=== PATIENT | male | born 1970 | race American Indian/Alaskan Native ===

== ENCOUNTER 2016-08-29 13:11 | Emergency (ER) | payer OTHER ==
[2016-08-29] MEDS ORDERED: CATAPRES PO ONE ×2 (16:50→18:32)
[2016-08-29] MEDS ORDERED: TORADOL IV ONE (16:51)
--- NOTE | 2016-08-29 19:32 | Emergency Department Report ---
ED General Adult HPI - General Chief complaint: High BP Stated complaint: HIGH BP Time Seen by Provider: 08/29/16 15:57 Source: EMS Mode of arrival: Stretcher Limitations: Other - History of Present Illness Initial comments: Patient sent here because blood pressure elevated. Reports non-compliant with BP meds for months. Does not remember the dose of lisinopril that he should take. -: Gradual, month(s) Severity scale (0 -10): 0 Consistency: intermittent Improves with: none Worsens with: none Associated Symptoms: other (reports chronic bilateral wrist pain). denies: confusion, chest pain, cough, diaphoresis, fever/chills, headaches, loss of appetite, malaise, nausea/vomiting, rash, seizure, shortness of breath, syncope , weakness - Related Data Previous Rx's Medication Instructions Recorded Last Taken Type Azithromycin [Zithromax Z-TERRI] 250 mg PO DAILY #6 tablet 08/04/13 Unknown Rx Benzonatate [Tessalon Perles] 100 mg PO Q8HR PRN #30 capsule 08/04/13 Unknown Rx Ibuprofen [Motrin] 800 mg PO Q8H PRN #20 tablet 08/04/13 Unknown Rx Gabapentin [Neurontin] 300 mg PO Q8H #90 capsule 04/21/14 Unknown Rx Ibuprofen [Motrin] 800 mg PO BID #20 tablet 04/21/14 Unknown Rx Cyclobenzaprine [Flexeril 10mg] 10 mg PO TID PRN #20 tablet 06/25/14 Unknown Rx Docusate Sodium [Colace CAP] 100 mg PO BID PRN #30 capsule 06/25/14 Unknown Rx HYDROcodone/APAP 5-325 [[place] 1 each PO Q6HR PRN #14 tablet 06/25/14 Unknown Rx 5/325] Lisinopril [Zestril TAB] 5 mg PO QDAY #15 tablet 08/29/16 Unknown Rx Allergies Allergy/AdvReac Type Severity Reaction Status Date / Time No Known Allergies Allergy Verified 06/25/14 08:28 ED Review of Systems ROS: Stated complaint: HIGH BP Other details as noted in HPI Other: GENERAL: Elevated BP. No weight change, fatigue, weakness, fever, chills, or night sweats SKIN: No changes in skin or hair, no itching, no rashes, no jaundice HEAD: No trauma, headache, or visual changes EYES: No blurriness, tearing, itching, acute visual loss, conjunctival discoloration, or scleral icterus EARS: No hearing loss, tinnitus, vertigo, or earache NOSE: No rhinorrhea, stuffiness, sneezing, itching, or epistaxis MOUTH: No bleeding gums, hoarseness, sore throat, or swelling CARDIAC: No new murmur, chest pain, palpitations, dyspnea on exertion, orthopnea , PND, or edema RESPIRATORY: No shortness of breath, wheeze, cough, sputum production, hemoptysis, pneumonia, asthma, bronchitis, or emphysema GI: No change in appetite, nausea, vomiting, dysphagia, change in bowel frequency, diarrhea, constipation, bleeding, hematemesis, melena, hematochezia, or abdominal pain URINARY: No frequency, urgency, polyuria, dysuria, hematuria, or incontinence MUSCULOSKELETAL: Bilateral wrist pain for over a year. No muscle weakness, joint stiffness, decrease in range of motion, redness, swelling NEUROLOGIC: No loss of sensation, numbness, tingling, tremors, weakness, paralysis, seizures HEMATOLOGIC: No anemia, easy bruising, bleeding, petechiae, or purpura ENDOCRINE: No hot or cold intolerance, sweating, polyuria, polydipsia or, polyphagia no thyroid problems PSYCHIATRIC: Denies SI/HI ED Past Medical Hx - Past Medical History Hx Hypertension: Yes Hx Diabetes: Yes Hx Psychiatric Treatment: Yes (BIPOLAR, depression) Additional medical history: Peripheral neuropathy,RECOVERING ALCOHOLIC and ADDICT - Surgical History Hx Appendectomy: Yes (??) - Social History Smoking Status: Current Every Day Smoker Substance Use Type: Alcohol - Medications Home Medications: Home Medications Medication Instructions Recorded Confirmed Last Taken Type Azithromycin [Zithromax Z-TERRI] 250 mg PO DAILY #6 tablet 08/04/13 Unknown Rx Benzonatate [Tessalon Perles] 100 mg PO Q8HR PRN #30 capsule 08/04/13 Unknown Rx Ibuprofen [Motrin] 800 mg PO Q8H PRN #20 tablet 08/04/13 Unknown Rx Gabapentin [Neurontin] 300 mg PO Q8H #90 capsule 04/21/14 Unknown Rx Ibuprofen [Motrin] 800 mg PO BID #20 tablet 04/21/14 Unknown Rx Cyclobenzaprine [Flexeril 10mg] 10 mg PO TID PRN #20 tablet 06/25/14 Unknown Rx Docusate Sodium [Colace CAP] 100 mg PO BID PRN #30 capsule 06/25/14 Unknown Rx HYDROcodone/APAP 5-325 [[place] 1 each PO Q6HR PRN #14 tablet 06/25/14 Unknown Rx 5/325] Lisinopril [Zestril TAB] 5 mg PO QDAY #15 tablet 08/29/16 Unknown Rx ED Physical Exam - General Limitations: Other - Other Other exam information: GENERAL: Patient in no acute distress HEAD: Normocephalic, atraumatic EYES: PERRLA, EOM intact, no scleral icterus, no conjunctival hemorrhage, visual mac and acuity wnl, NOSE: No tenderness, discharge, sinus tenderness MOUTH: No erythema, bleeding, exudate HEART: Regular rate and rhythm, no murmur, S1-S2 are auscultated, pulses are symmetric LUNGS: No wheezing, rales, rhonchi, bilateral breath sounds ABDOMEN: Normal bowel sounds, no tenderness, no rebound, no guarding, no masses , no CVA tenderness MUSCULOSKELETAL: Normal joint range of motion, no redness, no swelling, no tenderness NEUROLOGIC: GCS 15, Alert and Oriented x3, Cranial nerves intact, normal sensation, normal strength, normal gait, no cerebellar deficit PSYCHIATRIC: No homicidal or suicidal ideation, no anxiety, no depression, no hallucinations SKIN: Skin is warm and dry, no wounds, no rashes ED Course Vital Signs 08/29/16 08/29/16 08/29/16 13:35 13:47 14:00 Temperature 98.4 F Pulse Rate 78 Respiratory 18 Rate Blood Pressure 179/117 175/107 Blood Pressure 179/117 [Left] O2 Sat by Pulse 98 Oximetry 08/29/16 08/29/16 08/29/16 15:00 16:00 16:35 Temperature Pulse Rate Respiratory Rate Blood Pressure 157/98 172/100 164/113 Blood Pressure [Left] O2 Sat by Pulse Oximetry 08/29/16 08/29/16 08/29/16 18:16 19:01 19:41 Temperature Pulse Rate Respiratory 20 Rate Blood Pressure 184/112 Blood Pressure 163/101 [Left] O2 Sat by Pulse 99 Oximetry ED Medical Decision Making - EKG Data Interpretation: no acute changes - Medical Decision Making Patient comfortable. BP decreased to 160/102. Updated with results. Plan discharge with outpatient follow-up. Patient agrees with plan and will return if symptoms worsen. Critical care attestation.: If time is entered above; I have spent that time in minutes in the direct care of this critically ill patient, excluding procedure time. ED Disposition Clinical Impression: Hypertensive urgency Disposition: DC-01 TO HOME OR SELFCARE Is pt being admited?: No Condition: Stable Instructions: Hypertensive Crisis (ED) Prescriptions: Lisinopril [Zestril TAB] 5 mg PO QDAY #15 tablet Referrals: PRIMARY CAREMD [Primary Care Provider] - JONATHAN BOND MD [Staff Physician] - 2-3 Days Formerly Named [facility] [Outside] - [facility] [Outside] - [facility] Time of Disposition: 19:44
[2016-08-29 19:41] VITALS: BP 163/101
== END 2016-08-29 20:22 | disposition home or self-care (01) ==
LOC: ED 13:11
DX: I10 Essential (primary) hypertension (principal); E11.9 Type 2 diabetes mellitus without complications; F31.9 Bipolar disorder, unspecified; F17.200 Nicotine dependence, unspecified, uncomplicated
CPT/HCPCS: 93005; 93010; 96374; 99284; J1885

== ENCOUNTER 2016-09-09 11:30 | Emergency (ER) | payer SELFPAY ==
[2016-09-09 12:09] LABS: Basophils % (Auto) 1.3 % (0.0-1.8); Eosinophils % (Auto) 0.7 % (0.0-4.3); Hematocrit 38.1 % (35.5-45.6); Hemoglobin 13.2 gm/dl (11.8-15.2); Mean Corpuscular HGB Conc 35 % (32-34); Mean Corpuscular Hemoglobin 28 pg (28-32); Mean Corpuscular Volume 81 fl (84-94); Platelet Count 231 K/mm3 (140-440); Red Blood Count 4.68 M/mm3 (3.65-5.03); Red Cell Distribution Width 15.1 % (13.2-15.2); White Blood Count 4.4 K/mm3 (4.5-11.0)
[2016-09-09 12:26] LABS: Anion Gap 18 mmol/L; BUN/Creatinine Ratio 17.14; Blood Urea Nitrogen 12 mg/dL (9-20); Calcium 8.5 mg/dL (8.4-10.2); Carbon Dioxide 26 mmol/L (22-30); Chloride 100.2 mmol/L (98-107); Glucose 114 mg/dL (75-100); Potassium 4.1 mmol/L (3.6-5.0); Sodium 140 mmol/L (137-145)
[2016-09-09 13:03] LABS: Urine Drugs of Abuse Note Disclamer
[2016-09-09 13:14] LABS: Bilirubin,Urine NEG (Negative); Blood,Urine NEG (Negative); Ketones,Urine NEG (Negative); Leukocyte Esterase,Urine NEG (Negative); Nitrite,Urine NEG (Negative); Protein,Urine <15 mg/dL mg/dL (Negative); Urobilinogen,Urine < 2.0 mg/dL (<2.0); WBC,Urine < 1.0 /HPF (0.0-6.0)
[2016-09-09] MEDS ORDERED: CATAPRES PO ONE (13:35)
[2016-09-09] MEDS ORDERED: ATIVAN IM PRN (13:44)
[2016-09-09] MEDS ORDERED: ATIVAN PO PRN ×2 (13:44)
[2016-09-09] MEDS ORDERED: TYLENOL PO PRN (13:46)
[2016-09-09] MEDS ORDERED: MILK OF MAGNESIA PO PRN (13:46)
[2016-09-09] MEDS ORDERED: ALUM-MAG HYDROX-SIMETH 200-200-20MG/5ML PO PRN (13:46)
--- NOTE | 2016-09-09 13:53 | Emergency Department Report ---
ED General Adult HPI - General Chief complaint: Psych Stated complaint: DIANNE MÁRQUEZ Time Seen by Provider: 09/09/16 13:19 Source: patient Mode of arrival: Ambulatory Limitations: No Limitations - History of Present Illness Initial comments: The patient states that he was sent here by the [facility] for detox and does have a letter to that effect. Apparently the patient is in a treatment program at the [facility]. He states that he previously has been on Seroquel and Cymbalta. He is not taking any psychiatric medicine now. He states that he drinks daily and that his last drink was this morning prior to arrival. Despite this he claims that he wants detox "because they told me I need it". Otherwise it does not seem like the patient has any real inclination to stop drinking. He states that if he stops drinking he shakes badly. He states he needs to be on medication if he stops drinking. Apparently he has been in detox programs in the past and does have a psychiatric history. -: year(s) Associated Symptoms: denies other symptoms Treatments Prior to Arrival: none - Related Data Previous Rx's Medication Instructions Recorded Last Taken Type Azithromycin [Zithromax Z-TERRI] 250 mg PO DAILY #6 tablet 08/04/13 Unknown Rx Benzonatate [Tessalon Perles] 100 mg PO Q8HR PRN #30 capsule 08/04/13 Unknown Rx Ibuprofen [Motrin] 800 mg PO Q8H PRN #20 tablet 08/04/13 Unknown Rx Gabapentin [Neurontin] 300 mg PO Q8H #90 capsule 04/21/14 Unknown Rx Ibuprofen [Motrin] 800 mg PO BID #20 tablet 04/21/14 Unknown Rx Cyclobenzaprine [Flexeril 10mg] 10 mg PO TID PRN #20 tablet 06/25/14 Unknown Rx Docusate Sodium [Colace CAP] 100 mg PO BID PRN #30 capsule 06/25/14 Unknown Rx HYDROcodone/APAP 5-325 [[place] 1 each PO Q6HR PRN #14 tablet 06/25/14 Unknown Rx 5/325] Ibuprofen [Motrin] 600 mg PO Q8H PRN #15 tablet 08/29/16 Unknown Rx Lisinopril [Zestril TAB] 5 mg PO QDAY #15 tablet 08/29/16 Unknown Rx Allergies Allergy/AdvReac Type Severity Reaction Status Date / Time No Known Allergies Allergy Verified 09/09/16 11:42 ED Review of Systems ROS: Stated complaint: MH EVAL Other details as noted in HPI Constitutional: denies: chills, fever Eyes: denies: eye pain, eye discharge, vision change ENT: denies: ear pain, throat pain Respiratory: denies: cough, shortness of breath, wheezing Cardiovascular: denies: chest pain, palpitations Endocrine: no symptoms reported Gastrointestinal: denies: abdominal pain, nausea, diarrhea Genitourinary: denies: urgency, dysuria Musculoskeletal: denies: back pain, joint swelling, arthralgia Skin: denies: rash, lesions Neurological: denies: headache, weakness, paresthesias Psychiatric: denies: anxiety, depression Hematological/Lymphatic: denies: easy bleeding, easy bruising ED Past Medical Hx - Past Medical History Previous Medical History?: Yes Hx Hypertension: Yes Hx Diabetes: Yes Hx Psychiatric Treatment: Yes (BIPOLAR, depression) Additional medical history: Peripheral neuropathy,RECOVERING ALCOHOLIC and ADDICT - Surgical History Hx Appendectomy: Yes (??) - Social History Smoking Status: Current Every Day Smoker Substance Use Type: Alcohol Other Social History: Patient states that he has been in "[employer] housing since 2013. He is not homeless. - Medications Home Medications: Home Medications Medication Instructions Recorded Confirmed Last Taken Type Azithromycin [Zithromax Z-TERRI] 250 mg PO DAILY #6 tablet 08/04/13 Unknown Rx Benzonatate [Tessalon Perles] 100 mg PO Q8HR PRN #30 capsule 08/04/13 Unknown Rx Ibuprofen [Motrin] 800 mg PO Q8H PRN #20 tablet 08/04/13 Unknown Rx Gabapentin [Neurontin] 300 mg PO Q8H #90 capsule 04/21/14 Unknown Rx Ibuprofen [Motrin] 800 mg PO BID #20 tablet 04/21/14 Unknown Rx Cyclobenzaprine [Flexeril 10mg] 10 mg PO TID PRN #20 tablet 06/25/14 Unknown Rx Docusate Sodium [Colace CAP] 100 mg PO BID PRN #30 capsule 06/25/14 Unknown Rx HYDROcodone/APAP 5-325 [[place] 1 each PO Q6HR PRN #14 tablet 06/25/14 Unknown Rx 5/325] Ibuprofen [Motrin] 600 mg PO Q8H PRN #15 tablet 08/29/16 Unknown Rx Lisinopril [Zestril TAB] 5 mg PO QDAY #15 tablet 08/29/16 Unknown Rx ED Physical Exam - General Limitations: No Limitations General appearance: alert, in no apparent distress - Head Head exam: Present: atraumatic, normocephalic - Eye Eye exam: Present: normal appearance. Absent: scleral icterus - ENT ENT exam: Present: mucous membranes moist - Neck Neck exam: Present: normal inspection - Respiratory Respiratory exam: Present: normal lung sounds bilaterally. Absent: respiratory distress - Cardiovascular Cardiovascular Exam: Present: regular rate, normal rhythm. Absent: systolic murmur, diastolic murmur, rubs, gallop - GI/Abdominal GI/Abdominal exam: Present: soft, normal bowel sounds. Absent: distended, tenderness, guarding, rebound, rigid - Rectal Rectal exam: Present: deferred - Extremities Exam Extremities exam: Present: normal inspection - Back Exam Back exam: Present: normal inspection - Neurological Exam Neurological exam: Present: alert, oriented X3, CN II-XII intact, normal gait. Absent: motor sensory deficit - Psychiatric Psychiatric exam: Present: anxious. Absent: depressed, agitated, manic (speech is a bit pressurized but not truly manic.), suicidal ideation - Skin Skin exam: Present: warm, dry, intact, normal color. Absent: rash ED Course Vital Signs 09/09/16 11:42 Temperature 98.6 F Pulse Rate 91 H Respiratory 20 Rate Blood Pressure 151/103 O2 Sat by Pulse 100 Oximetry - Reevaluation(s) Reevaluation #1: The patient has been referred to mental health for evaluation for possible inpatient detox program. I have initiated a see what protocol. Patient is not currently withdrawing. He had moderate hypertension and medication was initiated. 09/09/16 13:53 ED Medical Decision Making - Lab Data Result diagrams: 09/09/16 11:56 09/09/16 11:56 Laboratory Results - last 24 hr 09/09/16 09/09/16 09/09/16 11:56 11:56 11:56 WBC 4.4 L RBC 4.68 Hgb 13.2 Hct 38.1 MCV 81 L MCH 28 MCHC 35 H RDW 15.1 Plt Count 231 Lymph % (Auto) 42.1 H [place] % (Auto) 8.7 H Eos % (Auto) 0.7 Baso % (Auto) 1.3 Lymph # 1.9 [place] # 0.4 Eos # 0.0 Baso # 0.1 Seg Neutrophils % 47.2 Seg Neutrophils # 2.1 Sodium 140 Potassium 4.1 Chloride 100.2 Carbon Dioxide 26 Anion Gap 18 BUN 12 Creatinine 0.7 L Estimated GFR > 60 BUN/Creatinine Ratio 17.14 Glucose 114 H Calcium 8.5 Urine Color Urine Turbidity Urine pH Ur Specific [place] Urine Protein Urine Glucose (UA) Urine Ketones Urine Blood Urine Nitrite Urine Bilirubin Urine Urobilinogen Ur Leukocyte Esterase Urine WBC (Auto) Urine RBC (Auto) U Epithel Cells (Auto) Urine Opiates Screen Urine Methadone Screen Ur Barbiturates Screen Ur Phencyclidine Scrn Ur Amphetamines Screen U Benzodiazepines Scrn Plasma/Serum Alcohol 0.10 H 09/09/16 09/09/16 Unknown Unknown WBC RBC Hgb Hct MCV MCH MCHC RDW Plt Count Lymph % (Auto) [place] % (Auto) Eos % (Auto) Baso % (Auto) Lymph # [place] # Eos # Baso # Seg Neutrophils % Seg Neutrophils # Sodium Potassium Chloride Carbon Dioxide Anion Gap BUN Creatinine Estimated GFR BUN/Creatinine Ratio Glucose Calcium Urine Color Colorless Urine Turbidity Clear Urine pH 6.0 Ur Specific [place] 1.002 L Urine Protein <15 mg/dl Urine Glucose (UA) Neg Urine Ketones Neg Urine Blood Neg Urine Nitrite Neg Urine Bilirubin Neg Urine Urobilinogen < 2.0 Ur Leukocyte Esterase Neg Urine WBC (Auto) < 1.0 Urine RBC (Auto) 1.0 U Epithel Cells (Auto) < 1.0 Urine Opiates Screen Presumptive negative Urine Methadone Screen Presumptive negative Ur Barbiturates Screen Presumptive negative Ur Phencyclidine Scrn Presumptive negative Ur Amphetamines Screen Presumptive negative U Benzodiazepines Scrn Presumptive negative Plasma/Serum Alcohol Critical care attestation.: If time is entered above; I have spent that time in minutes in the direct care of this critically ill patient, excluding procedure time. ED Disposition Clinical Impression: Alcoholism, Essential hypertension Disposition: DC/TX-65 PSY HOSP/PSY UNIT Is pt being admited?: No Does the pt Need Aspirin: No Condition: Stable Instructions: Hypertension (ED) Referrals: PRIMARY CARE, [Primary Care Provider] - 3-5 Days Time of Disposition: 13:54
[2016-09-09] MEDS ORDERED: NORVASC PO SCH (14:00)
--- NOTE | 2016-09-09 19:49 | Event Note ---
Date: 09/09/16 Discussed with patient about not being able to do alcohol rehabilitation here. Patient requests to leave. Patient is not suicidal or homicidal. Patient is alert and oriented 4. Patient has no tremors no tachycardia, or no other signs of acute withdrawal. Discussed with psychiatric network director Jody. Patient can go to [place]. He does not need ambulance transportation and he can go by his own private vehicle. Discussed plan with patient and he agrees to plan. All diagnostic questions and concerns have been addressed patient has no further questions. Discussed with patient is having any tremors or any seizures or any worsening of his condition to me like him back to the emergency department patient has verbalized understanding. Additional verbal discharged structures were given.
[2016-09-09 23:41] VITALS: BP 141/92
== END 2016-09-09 20:00 ==
LOC: ED 11:30
DX: F10.129 Alcohol abuse with intoxication, unspecified (principal); I10 Essential (primary) hypertension; E11.9 Type 2 diabetes mellitus without complications; F31.9 Bipolar disorder, unspecified; F17.200 Nicotine dependence, unspecified, uncomplicated
CPT/HCPCS: 36415; 80048; 80307; 81001; 85025; 99284; G0480; 80320

== ENCOUNTER 2016-11-14 08:38 | Emergency (ER) | payer SELFPAY ==
[2016-11-14 09:00] VITALS: BP 103/68
[2016-11-14 09:42] LABS: Anion Gap 20 mmol/L; BUN/Creatinine Ratio 18.57; Blood Urea Nitrogen 13 mg/dL (9-20); Calcium 9.3 mg/dL (8.4-10.2); Carbon Dioxide 24 mmol/L (22-30); Chloride 99.5 mmol/L (98-107); Glucose 140 mg/dL (75-100); Potassium 4.6 mmol/L (3.6-5.0); Sodium 139 mmol/L (137-145)
[2016-11-14 09:43] LABS: Basophils % (Auto) 0.4 % (0.0-1.8); Eosinophils % (Auto) 0.4 % (0.0-4.3); Hematocrit 46.1 % (35.5-45.6); Hemoglobin 15.4 gm/dl (11.8-15.2); Mean Corpuscular HGB Conc 33 % (32-34); Mean Corpuscular Hemoglobin 28 pg (28-32); Mean Corpuscular Volume 83 fl (84-94); Platelet Count 251 K/mm3 (140-440); Red Blood Count 5.58 M/mm3 (3.65-5.03); Red Cell Distribution Width 14.9 % (13.2-15.2); White Blood Count 11.5 K/mm3 (4.5-11.0)
[2016-11-14] MEDS ORDERED: ZOFRAN IV ONE (16:30)
[2016-11-14] MEDS ORDERED: NACL 0.9% 1000 ML 1,000 ML IV ONE (16:30)
[2016-11-14] MEDS ORDERED: TORADOL IV ONE (16:30)
--- NOTE | 2016-11-14 16:34 | Emergency Department Report ---
ED Abdominal Pain HPI - General Chief Complaint: Nausea/Vomiting/Diarrhea Stated Complaint: ABD PAIN Time Seen by Provider: 11/14/16 16:23 Source: patient Mode of arrival: Ambulatory Limitations: No Limitations - History of Present Illness Initial Comments: PATIENT STATED THAT HE WAS AT A [employer] AND HE THINK THAT HE ATE BAD FOOD. Complaint: abdominal pain -: Last night Location: diffuse Radiation: none Migration to: no migration Severity: moderate Severity scale (0 -10): 4 Quality: cramping Improves With: vomiting Worsens With: eating Associated Symptoms: nausea, vomiting, diarrhea. denies: fever, hematemesis, hematochezia, melena, hematuria, anorexia - Related Data Previous Rx's Medication Instructions Recorded Last Taken Type Azithromycin [Zithromax Z-TERRI] 250 mg PO DAILY #6 tablet 08/04/13 Unknown Rx Benzonatate [Tessalon Perles] 100 mg PO Q8HR PRN #30 capsule 08/04/13 Unknown Rx Ibuprofen [Motrin] 800 mg PO Q8H PRN #20 tablet 08/04/13 Unknown Rx Gabapentin [Neurontin] 300 mg PO Q8H #90 capsule 04/21/14 Unknown Rx Ibuprofen [Motrin] 800 mg PO BID #20 tablet 04/21/14 Unknown Rx Cyclobenzaprine [Flexeril 10mg] 10 mg PO TID PRN #20 tablet 06/25/14 Unknown Rx Docusate Sodium [Colace CAP] 100 mg PO BID PRN #30 capsule 06/25/14 Unknown Rx HYDROcodone/APAP 5-325 [[place] 1 each PO Q6HR PRN #14 tablet 06/25/14 Unknown Rx 5/325] Ibuprofen [Motrin] 600 mg PO Q8H PRN #15 tablet 08/29/16 Unknown Rx Lisinopril [Zestril TAB] 5 mg PO QDAY #15 tablet 08/29/16 Unknown Rx Ondansetron [Zofran Odt] 4 mg PO Q8HR PRN #14 tab.rapdis 11/14/16 Unknown Rx Allergies Allergy/AdvReac Type Severity Reaction Status Date / Time No Known Allergies Allergy Verified 09/09/16 11:42 ED Review of Systems ROS: Stated complaint: ABD PAIN Other details as noted in HPI Comment: All other systems reviewed and negative Constitutional: denies: chills, fever Respiratory: denies: cough, orthopnea, shortness of breath Cardiovascular: denies: chest pain, palpitations Gastrointestinal: abdominal pain, nausea, vomiting, diarrhea. denies: constipation, hematemesis, melena, hematochezia Neurological: denies: headache, weakness ED Past Medical Hx - Past Medical History Previous Medical History?: Yes Hx Hypertension: Yes Hx Diabetes: Yes Hx Psychiatric Treatment: Yes (BIPOLAR, depression) Additional medical history: Peripheral neuropathy,RECOVERING ALCOHOLIC and ADDICT - Surgical History Past Surgical History?: Yes Hx Appendectomy: Yes (??) - Social History Smoking Status: Current Every Day Smoker Substance Use Type: Alcohol - Medications Home Medications: Home Medications Medication Instructions Recorded Confirmed Last Taken Type Azithromycin [Zithromax Z-TERRI] 250 mg PO DAILY #6 tablet 08/04/13 Unknown Rx Benzonatate [Tessalon Perles] 100 mg PO Q8HR PRN #30 capsule 08/04/13 Unknown Rx Ibuprofen [Motrin] 800 mg PO Q8H PRN #20 tablet 08/04/13 Unknown Rx Gabapentin [Neurontin] 300 mg PO Q8H #90 capsule 04/21/14 Unknown Rx Ibuprofen [Motrin] 800 mg PO BID #20 tablet 04/21/14 Unknown Rx Cyclobenzaprine [Flexeril 10mg] 10 mg PO TID PRN #20 tablet 06/25/14 Unknown Rx Docusate Sodium [Colace CAP] 100 mg PO BID PRN #30 capsule 06/25/14 Unknown Rx HYDROcodone/APAP 5-325 [[place] 1 each PO Q6HR PRN #14 tablet 06/25/14 Unknown Rx 5/325] Ibuprofen [Motrin] 600 mg PO Q8H PRN #15 tablet 08/29/16 Unknown Rx Lisinopril [Zestril TAB] 5 mg PO QDAY #15 tablet 08/29/16 Unknown Rx Ondansetron [Zofran Odt] 4 mg PO Q8HR PRN #14 tab.rapdis 11/14/16 Unknown Rx ED Physical Exam - General Limitations: No Limitations General appearance: alert, in no apparent distress - Head Head exam: Present: normocephalic - Eye Eye exam: Present: normal appearance Pupils: Present: normal accommodation - ENT ENT exam: Present: normal exam, normal orophraynx, mucous membranes dry - Neck Neck exam: Present: normal inspection, full ROM. Absent: tenderness, meningismus, lymphadenopathy - Respiratory Respiratory exam: Present: normal lung sounds bilaterally. Absent: respiratory distress, wheezes, rales, rhonchi, chest wall tenderness - Cardiovascular Cardiovascular Exam: Present: regular rate, normal rhythm, normal heart sounds. Absent: diastolic murmur - GI/Abdominal GI/Abdominal exam: Present: soft, normal bowel sounds. Absent: distended, tenderness, guarding, rebound, rigid, organomegaly, mass, bruit, pulsatile mass - Extremities Exam Extremities exam: Present: normal inspection - Back Exam Back exam: Present: normal inspection. Absent: CVA tenderness (R), CVA tenderness (L) - Neurological Exam Neurological exam: Present: alert, oriented X3, CN II-XII intact, normal gait - Psychiatric Psychiatric exam: Present: normal affect. Absent: manic, homicidal ideation, suicidal ideation - Skin Skin exam: Present: warm, dry, intact ED Course Vital Signs 11/14/16 08:58 Temperature 97.7 F Pulse Rate 93 H Respiratory 18 Rate Blood Pressure 103/68 O2 Sat by Pulse 100 Oximetry - Reevaluation(s) Reevaluation #1: 11/14/16 18:13 PATIENT STATED THAT HE FEEL MUCH BETTER. ED Medical Decision Making - Lab Data Result diagrams: 11/14/16 09:17 11/14/16 09:17 - Medical Decision Making LABS REVIEWED , NO ACUTE ABNORMALITIES. PATIENT STATED THAT HE FEEL MUCH BETTER , NO VOMITING. Critical care attestation.: If time is entered above; I have spent that time in minutes in the direct care of this critically ill patient, excluding procedure time. ED Disposition Clinical Impression: Abdominal pain, Gastroenteritis Disposition: - TO HOME OR SELFCARE Is pt being admited?: No Condition: Stable Instructions: Gastroenteritis (ED) Referrals: PRIMARY CARE, [Primary Care Provider] - 3-5 Days
[2016-11-14] MEDS ORDERED: ZOFRAN ONE (18:41)
== END 2016-11-14 18:52 | disposition home or self-care (01) ==
LOC: ED 08:38
DX: K21.9 Gastro-esophageal reflux disease without esophagitis (principal); I10 Essential (primary) hypertension; E11.9 Type 2 diabetes mellitus without complications; F17.200 Nicotine dependence, unspecified, uncomplicated
CPT/HCPCS: 36415; 80048; 82962; 83690; 85025; 96374; 99283; J2405

== ENCOUNTER 2017-01-18 09:39 | Emergency (ER) | payer OTHER ==
[2017-01-18 10:04] VITALS: BP 134/82
--- NOTE | 2017-01-18 13:31 | Emergency Department Report ---
ED Rash HPI - HPI Chief Complaint: Skin Rash Stated Complaint: RASH ON LEFT ARM Time Seen by Provider: 01/18/17 11:59 Duration: 2 Days (rash to left arm and on the left arm. For 2 days.) Location: Upper Extremities (left upper extremity) Suspected Cause: Unknown Rash Symptoms: Yes Itching (rash left arm and armpit 2 days), Yes Blistering ( left arm and armpit), No Facial Swelling, No Tongue/Oral Swelling, No Breathing Difficulties, No Choking Sensation, No Wheezing/Dyspnea, No Peeling, No Fever, No Lightheaded, No Malaise, No Myalgias Severity: moderate (patient reports that pain is 4 out of 10 and feels tingly and also rash sites are itchy) Other History: Patient reports that he is in the [facility] program for drug and alcohol treatment and states that he took flu shot 6 weeks ago and pneumonia and tetanus shot yesterday. Patient said he has red spots on his left arm and armpit that has some blisters that started 2 days ago reports pain that tingling in and itching at the site. He was sent to emergency room by the nursing staff to be checked out because he could have hives from medication that he got yesterday. Patient said that the rash areas started 2 days ago and he got the tetanus vaccine and pneumonia vaccine yesterday. He denies any fever or chills. Denies any coughing, difficulty swallowing, swelling of tongue , wheezing or stridor. Denies any fever or chills. Denies any neck swelling. No [id number] medication use. He states that his tetanus vaccine is up-to -date ED Review of Systems ROS: Stated complaint: RASH ON LEFT ARM Other details as noted in HPI Comment: All other systems reviewed and negative Constitutional: no symptoms reported Eyes: denies: eye discharge ENT: denies: ear pain, throat pain, congestion Respiratory: no symptoms reported Cardiovascular: denies: chest pain, palpitations, dyspnea on exertion, edema, syncope, paroxysmal nocturnal dyspnea Gastrointestinal: denies: abdominal pain, nausea, vomiting Musculoskeletal: denies: joint swelling, arthralgia Skin: rash (itching and painful blisters), pruritus Neurological: denies: headache, weakness, abnormal gait, vertigo ED Past Medical Hx - Past Medical History Previous Medical History?: Yes Hx Hypertension: Yes Hx Diabetes: Yes Hx Psychiatric Treatment: Yes (BIPOLAR, depression) Additional medical history: Peripheral neuropathy,RECOVERING ALCOHOLIC and ADDICT - Surgical History Past Surgical History?: Yes Hx Appendectomy: Yes (??) - Family History Family history: no significant - Social History Smoking Status: Current Every Day Smoker Substance Use Type: Prescribed - Medications Home Medications: Home Medications Medication Instructions Recorded Confirmed Last Taken Type Azithromycin [Zithromax Z-TERRI] 250 mg PO DAILY #6 tablet 08/04/13 Unknown Rx Benzonatate [Tessalon Perles] 100 mg PO Q8HR PRN #30 capsule 08/04/13 Unknown Rx Ibuprofen [Motrin] 800 mg PO Q8H PRN #20 tablet 08/04/13 Unknown Rx Gabapentin [Neurontin] 300 mg PO Q8H #90 capsule 04/21/14 Unknown Rx Ibuprofen [Motrin] 800 mg PO BID #20 tablet 04/21/14 Unknown Rx Cyclobenzaprine [Flexeril 10mg] 10 mg PO TID PRN #20 tablet 06/25/14 Unknown Rx Docusate Sodium [Colace CAP] 100 mg PO BID PRN #30 capsule 06/25/14 Unknown Rx HYDROcodone/APAP 5-325 [[place] 1 each PO Q6HR PRN #14 tablet 06/25/14 Unknown Rx 5/325] Ibuprofen [Motrin] 600 mg PO Q8H PRN #15 tablet 08/29/16 Unknown Rx Lisinopril [Zestril TAB] 5 mg PO QDAY #15 tablet 08/29/16 Unknown Rx Ondansetron [Zofran Odt] 4 mg PO Q8HR PRN #14 tab.rapdis 11/14/16 Unknown Rx Valacyclovir HCl [Valtrex] 1,000 mg PO TID 7 Days #21 tablet 01/18/17 Unknown Rx hydrOXYzine HCL [Atarax] 25 mg PO Q6HR PRN 5 Days #20 tablet 01/18/17 Unknown Rx Rash Exam - Exam General: Vital signs noted. No distress. Alert and acting appropriately. This is a 46-year-old male well-nourished well-developed in no acute distress. HEENT: No Periorbital Edema, No Conjuctival Injection, No Chemosis, No Perioral Edema, No Tongue Edema, No Uvular Edema, No Compromised Airway, No Drooling Lungs: Yes Good Air Exchange, No Wheezes, No Ronchi, No Stridor, No Cough, No Labored Respirations, No Retractions, No Use of Accessory Muscles, No Other Abnormal Lung Sounds Heart: Yes Regular, No Murmur Skin: Yes Maculopapular Rash (located to left upper arm. Group vesicles that is tender to palpate), Yes Tenderness (areas of grouped vesicles left upper arm) , Yes Erythema (upper arm to areas of grouped vesicles), No Urticarial Rash, No Morbilliform rash, No Bulla(e), No Excoriations, No Weeping, No Edema, No Encrustations, No Other (no rash noted under the left axilla. No adenopathy) Other: Positive: Abdomen Normal, Neurologic Normal, Musculoskeletal Normal ED Course Vital Signs 01/18/17 09:59 Temperature 97.8 F Pulse Rate 85 Respiratory 20 Rate Blood Pressure 134/82 O2 Sat by Pulse 98 Oximetry - Reevaluation(s) Reevaluation #1: 01/18/17 14:27 She is stable throughout ED stay. ED Medical Decision Making - Medical Decision Making D course: Presents to emergency room complaining of tingling and a rash that is itchy that started 2 days ago to his left arm. He said he received tetanus and pneumonia shot yesterday and he is in a treatment program and they sent him over to the emergency room to be evaluated for hives. Physical findings for herpetic type lesions that is grouped to upper arm. Area is erythema and area involvement is minimal. I discussed with patient that he does not have hives and that he has shingles is located only on left arm and does not cross over dermatone line. Patient was understanding the discharge insertion and treatment plan. I discussed with him that he needs to keep affected areas clean and dry and this is contagious so he needs to wear long sleeve shirts so he does not spread this to anyone else. I instructed patient that he needs to follow up with his primary care physician in and also dermatology in 2 days for follow-up viral rash. Patient discharged from emergency room in stable condition Critical care attestation.: If time is entered above; I have spent that time in minutes in the direct care of this critically ill patient, excluding procedure time. ED Disposition Clinical Impression: Pruritic condition Shingles rash Qualifiers: Herpes zoster complications: without complications Qualified Code(s): B02.9 - Zoster without complications Disposition: DC-01 TO HOME OR SELFCARE Is pt being admited?: No Does the pt Need Aspirin: No Condition: Stable Instructions: Herpes Zoster (ED), Itchy Skin (ED) Additional Instructions: Please keep affected areas clean and dry. Practice good hand hygiene Take medications as prescribed Please do not drive or operate heavy machinery while taking Atarax as this can cause drowsiness. I directed to help with the itching Prescriptions: hydrOXYzine HCL [Atarax] 25 mg PO Q6HR PRN 5 Days #20 tablet PRN Reason: Itching Valacyclovir HCl [Valtrex] 1,000 mg PO TID 7 Days #21 tablet Referrals: BELINDA GILLIS MD [Staff Physician] - 01/20/17 PRIMARY CARE, [Primary Care Provider] - 01/20/17 Forms: Work/School Release Form(ED)
== END 2017-01-18 14:46 | disposition home or self-care (01) ==
LOC: ED 09:39
DX: B02.9 Zoster without complications (principal); I10 Essential (primary) hypertension; E11.42 Type 2 diabetes mellitus with diabetic polyneuropathy; F17.200 Nicotine dependence, unspecified, uncomplicated
CPT/HCPCS: 99282

== ENCOUNTER 2018-07-06 03:06 | Emergency (ER) | payer OTHER ==
[2018-07-06 03:43] LABS: Basophils # (Auto) 0.1 K/mm3 (0.0-0.1); Basophils % (Auto) 0.9 % (0.0-1.8); Eosinophils % (Auto) 0.7 % (0.0-4.3); Hematocrit 39.6 % (35.5-45.6); Hemoglobin 13.6 gm/dl (11.8-15.2); Lymphocytes # (Auto) 2.6 K/mm3 (1.2-5.4); Lymphocytes % (Auto) 42.2 % (13.4-35.0); Mean Corpuscular HGB Conc 34 % (32-34); Mean Corpuscular Volume 79 fl (84-94); Monocytes # (Auto) 0.6 K/mm3 (0.0-0.8); Monocytes % (Auto) 10.2 % (0.0-7.3); Platelet Count 224 K/mm3 (140-440); Red Blood Count 5.03 M/mm3 (3.65-5.03); Red Cell Distribution Width 16.5 % (13.2-15.2)
[2018-07-06 04:06] LABS: Alanine Aminotransferase 32 units/L (7-56); Albumin 3.8 g/dL (3.9-5); BUN/Creatinine Ratio 16; Blood Urea Nitrogen 13 mg/dL (9-20); Calcium 8.8 mg/dL (8.4-10.2); Hemolysis Index 31
--- NOTE | 2018-07-06 08:29 | Emergency Department Report ---
ED Abdominal Pain HPI - General Chief Complaint: Abdominal Pain Stated Complaint: ABD PAIN/CONSTIPATION Time Seen by Provider: 07/06/18 08:24 Source: patient Mode of arrival: Ambulatory Limitations: No Limitations - History of Present Illness Initial Comments: This is a 47-year-old -[place] male who presents to the emergency room with abdominal pain for one week. Patient states pain increased on Monday and he went to [facility] and told to take Gas-X and a laxative by the pharmacist for possible constipation. Patient states he taken medication for 1 week with no improvement of symptoms. 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 He reports pain is worse on the right side stomach. Last bowel movement 1 week ago. Patient states he usually has bowel movements daily. Denies nausea, vomiting, diarrhea, penile discharge, urinary frequency, urgency, or dysuria. MD Complaint: abdominal pain Onset/Timin -: week(s) Location: diffuse Radiation: none Migration to: no migration Severity scale (0 -10): 3 Quality: cramping Consistency: intermittent Improves With: nothing Worsens With: eating Associated Symptoms: constipation. denies: nausea, vomiting, diarrhea, fever, chills, dysuria, hematemesis, hematochezia, melena, hematuria, anorexia, syncope Treatments Prior to Arrival: other (laxatives) - Related Data Previous Rx's Medication Instructions Recorded Last Taken Type Azithromycin [Zithromax Z-TERRI] 250 mg PO DAILY #6 tablet 08/04/13 Unknown Rx Benzonatate [Tessalon Perles] 100 mg PO Q8HR PRN #30 capsule 08/04/13 Unknown Rx Ibuprofen [Motrin] 800 mg PO Q8H PRN #20 tablet 08/04/13 Unknown Rx Gabapentin [Neurontin] 300 mg PO Q8H #90 capsule 04/21/14 Unknown Rx Ibuprofen [Motrin] 800 mg PO BID #20 tablet 04/21/14 Unknown Rx Cyclobenzaprine [Flexeril 10mg] 10 mg PO TID PRN #20 tablet 06/25/14 Unknown Rx Docusate Sodium [Colace CAP] 100 mg PO BID PRN #30 capsule 06/25/14 Unknown Rx HYDROcodone/APAP 5-325 [[place] 1 each PO Q6HR PRN #14 tablet 06/25/14 Unknown Rx 5/325] Ibuprofen [Motrin] 600 mg PO Q8H PRN #15 tablet 08/29/16 Unknown Rx Lisinopril [Zestril TAB] 5 mg PO QDAY #15 tablet 08/29/16 Unknown Rx Ondansetron [Zofran Odt] 4 mg PO Q8HR PRN #14 tab.rapdis 11/14/16 Unknown Rx Valacyclovir HCl [Valtrex] 1,000 mg PO TID 7 Days #21 tablet 01/18/17 Unknown Rx hydrOXYzine HCL [Atarax] 25 mg PO Q6HR PRN 5 Days #20 tablet 01/18/17 Unknown Rx Acetaminophen [Acetaminophen 8 650 mg PO TID PRN #30 tablet.er 07/06/18 Unknown Rx Hour] Omeprazole 40 mg PO DAILY #30 capsule. 07/06/18 Unknown Rx Allergies Allergy/AdvReac Type Severity Reaction Status Date / Time No Known Allergies Allergy Verified 09/09/16 11:42 ED Review of Systems ROS: Stated complaint: ABD PAIN/CONSTIPATION Other details as noted in HPI Constitutional: denies: chills, fever Respiratory: denies: cough, shortness of breath, wheezing Cardiovascular: denies: chest pain, palpitations Gastrointestinal: abdominal pain, constipation. denies: nausea, diarrhea Genitourinary: denies: urgency, dysuria Musculoskeletal: denies: back pain, joint swelling, arthralgia Skin: denies: rash, lesions Neurological: denies: headache, weakness, paresthesias Psychiatric: denies: anxiety, depression ED Past Medical Hx - Past Medical History Previous Medical History?: Yes Hx Hypertension: Yes Hx Diabetes: Yes Hx Psychiatric Treatment: Yes (BIPOLAR, depression) Additional medical history: Peripheral neuropathy,RECOVERING ALCOHOLIC and ADDICT - Surgical History Past Surgical History?: Yes Hx Appendectomy: Yes (??) - Social History Smoking Status: Current Every Day Smoker Substance Use Type: None - Medications Home Medications: Home Medications Medication Instructions Recorded Confirmed Last Taken Type Azithromycin [Zithromax Z-TERRI] 250 mg PO DAILY #6 tablet 08/04/13 Unknown Rx Benzonatate [Tessalon Perles] 100 mg PO Q8HR PRN #30 capsule 08/04/13 Unknown Rx Ibuprofen [Motrin] 800 mg PO Q8H PRN #20 tablet 08/04/13 Unknown Rx Gabapentin [Neurontin] 300 mg PO Q8H #90 capsule 04/21/14 Unknown Rx Ibuprofen [Motrin] 800 mg PO BID #20 tablet 04/21/14 Unknown Rx Cyclobenzaprine [Flexeril 10mg] 10 mg PO TID PRN #20 tablet 06/25/14 Unknown Rx Docusate Sodium [Colace CAP] 100 mg PO BID PRN #30 capsule 06/25/14 Unknown Rx HYDROcodone/APAP 5-325 [[place] 1 each PO Q6HR PRN #14 tablet 06/25/14 Unknown Rx 5/325] Ibuprofen [Motrin] 600 mg PO Q8H PRN #15 tablet 08/29/16 Unknown Rx Lisinopril [Zestril TAB] 5 mg PO QDAY #15 tablet 08/29/16 Unknown Rx Ondansetron [Zofran Odt] 4 mg PO Q8HR PRN #14 tab.rapdis 11/14/16 Unknown Rx Valacyclovir HCl [Valtrex] 1,000 mg PO TID 7 Days #21 tablet 01/18/17 Unknown Rx hydrOXYzine HCL [Atarax] 25 mg PO Q6HR PRN 5 Days #20 tablet 01/18/17 Unknown Rx Acetaminophen [Acetaminophen 8 650 mg PO TID PRN #30 tablet.er 07/06/18 Unknown Rx Hour] Omeprazole 40 mg PO DAILY #30 capsule.dr 07/06/18 Unknown Rx ED Physical Exam - General Limitations: No Limitations General appearance: alert, in no apparent distress, obese - Respiratory Respiratory exam: Present: normal lung sounds bilaterally. Absent: respiratory distress - Cardiovascular Cardiovascular Exam: Present: regular rate, normal rhythm. Absent: systolic murmur, diastolic murmur, rubs, gallop - GI/Abdominal GI/Abdominal exam: Present: soft, tenderness (right upper quadrant), normal bowel sounds. Absent: distended, guarding, rebound, rigid, organomegaly, mass, bruit, pulsatile mass, hernia - Rectal Rectal exam: Present: deferred - Back Exam Back exam: Absent: CVA tenderness (R), CVA tenderness (L) - Neurological Exam Neurological exam: Present: alert, oriented X3, normal gait - Psychiatric Psychiatric exam: Present: normal affect, normal mood - Skin Skin exam: Present: warm, dry, intact, normal color. Absent: rash ED Course Vital Signs 07/06/18 03:12 Temperature 98.1 F Pulse Rate 82 Respiratory 18 Rate Blood Pressure 153/94 [Right] O2 Sat by Pulse 98 Oximetry ED Medical Decision Making - Lab Data Result diagrams: 07/06/18 03:15 07/06/18 03:15 Lab Results 07/06/18 07/06/18 07/06/18 Range/Units 03:15 03:15 03:15 WBC 6.1 (4.5-11.0) K/mm3 RBC 5.03 (3.65-5.03) M/mm3 Hgb 13.6 (11.8-15.2) gm/dl Hct 39.6 (35.5-45.6) % MCV 79 L (84-94) fl MCH 27 L (28-32) pg MCHC 34 (32-34) % RDW 16.5 H (13.2-15.2) % Plt Count 224 (140-440) K/mm3 Lymph % (Auto) 42.2 H (13.4-35.0) % [place] % (Auto) 10.2 H (0.0-7.3) % Eos % (Auto) 0.7 (0.0-4.3) % Baso % (Auto) 0.9 (0.0-1.8) % Lymph # 2.6 (1.2-5.4) K/mm3 [place] # 0.6 (0.0-0.8) K/mm3 Eos # 0.0 (0.0-0.4) K/mm3 Baso # 0.1 (0.0-0.1) K/mm3 Seg Neutrophils % 46.0 (40.0-70.0) % Seg Neutrophils # 2.8 (1.8-7.7) K/mm3 Sodium 138 (137-145) mmol/L Potassium 3.9 (3.6-5.0) mmol/L Chloride 99.0 (98-107) mmol/L Carbon Dioxide 24 (22-30) mmol/L Anion Gap 19 mmol/L BUN 13 (9-20) mg/dL Creatinine 0.8 (0.8-1.5) mg/dL Estimated GFR > 60 ml/min BUN/Creatinine Ratio 16 % Glucose 150 H (75-100) mg/dL Calcium 8.8 (8.4-10.2) mg/dL Total Bilirubin 0.20 (0.1-1.2) mg/dL AST 23 (5-40) units/L ALT 32 (7-56) units/L Alkaline Phosphatase 76 (35-129) units/L Total Protein 6.8 (6.3-8.2) g/dL Albumin 3.8 L (3.9-5) g/dL Albumin/Globulin Ratio 1.3 % Lipase 110 H (13-60) units/L Urine Color (Yellow) Urine Turbidity (Clear) Urine pH (5.0-7.0) Ur Specific [employer] (1.003-1.030) Urine Protein (Negative) mg/dL Urine Glucose (UA) (Negative) mg/dL Urine Ketones (Negative) mg/dL Urine Blood (Negative) Urine Nitrite (Negative) Urine Bilirubin (Negative) Urine Urobilinogen (<2.0) mg/dL Ur Leukocyte Esterase (Negative) Urine WBC (Auto) (0.0-6.0) /HPF Urine RBC (Auto) (0.0-6.0) /HPF 07/06/18 Range/Units 08:43 WBC (4.5-11.0) K/mm3 RBC (3.65-5.03) M/mm3 Hgb (11.8-15.2) gm/dl Hct (35.5-45.6) % MCV (84-94) fl MCH (28-32) pg MCHC (32-34) % RDW (13.2-15.2) % Plt Count (140-440) K/mm3 Lymph % (Auto) (13.4-35.0) % [place] % (Auto) (0.0-7.3) % Eos % (Auto) (0.0-4.3) % Baso % (Auto) (0.0-1.8) % Lymph # (1.2-5.4) K/mm3 [place] # (0.0-0.8) K/mm3 Eos # (0.0-0.4) K/mm3 Baso # (0.0-0.1) K/mm3 Seg Neutrophils % (40.0-70.0) % Seg Neutrophils # (1.8-7.7) K/mm3 Sodium (137-145) mmol/L Potassium (3.6-5.0) mmol/L Chloride (98-107) mmol/L Carbon Dioxide (22-30) mmol/L Anion Gap mmol/L BUN (9-20) mg/dL Creatinine (0.8-1.5) mg/dL Estimated GFR ml/min BUN/Creatinine Ratio % Glucose (75-100) mg/dL Calcium (8.4-10.2) mg/dL Total Bilirubin (0.1-1.2) mg/dL AST (5-40) units/L ALT (7-56) units/L Alkaline Phosphatase (35-129) units/L Total Protein (6.3-8.2) g/dL Albumin (3.9-5) g/dL Albumin/Globulin Ratio % Lipase (13-60) units/L Urine Color Straw (Yellow) Urine Turbidity Clear (Clear) Urine pH 6.0 (5.0-7.0) Ur Specific [employer] 1.004 (1.003-1.030) Urine Protein <15 mg/dl (Negative) mg/dL Urine Glucose (UA) 50 (Negative) mg/dL Urine Ketones Neg (Negative) mg/dL Urine Blood Mod (Negative) Urine Nitrite Neg (Negative) Urine Bilirubin Neg (Negative) Urine Urobilinogen < 2.0 (<2.0) mg/dL Ur Leukocyte Esterase Neg (Negative) Urine WBC (Auto) < 1.0 (0.0-6.0) /HPF Urine RBC (Auto) 2.0 (0.0-6.0) /HPF - Radiology Data Radiology results: report reviewed CT ABDOMEN PELVIS WITH CONTRAST: HISTORY: Right upper quadrant tenderness. COMPARISON: 06/25/14. TECHNIQUE: Helical CT in 1.25mm intervals following IV contrast. Sagittal and coronal reconstructions. FINDINGS: Lung bases: Normal. Liver: There are 2 small hypodensities in the right hepatic lobe which demonstrate filling on the delayed images consistent with cavernous hemangiomas. The remainder of the liver is unremarkable. Biliary system: Normal. Pancreas: The pancreatic parenchyma is unremarkable. There is minimal howard edema near the base of the mesentery/pancreas/transverse duodenum. This could represent a very early acute pancreatitis or possibly duodenal inflammation. Spleen: Normal. Kidneys/ureters/bladder: Normal. Adrenal glands: Normal. Aorta: Normal. Intestines: Normal. Appendix: Normal. Pelvic viscera: Normal. Ascites: None. Adenopathy: None. Musculoskeletal: Intact. Mild degenerative changes are noted in the lumbar spine. IMPRESSION: Minimal nonspecific edema in the mesentery as described. Early acute pancreatitis? Duodenitis? Cavernous hemangiomas of the liver. - Medical Decision Making Patient was examined by me. Vitals are normal and patient is in no acute distress. Obtained labs and CT of abdomen and pelvis. IV site initiated. Given Toradol 15 mg IV once while in ER. Lipase is elevated, all other labs are unremarkable. CT dictated by radiologist report reviewed by myself. Minimal nonspecific edema in the mesentery as described. Early acute pancreatitis? Duodenitis? Cavernous hemangiomas of the liver. Labeler attending Dr. Longoria. Consulted Jennifer from [facility]. She discussed plan with Dr. Hernandez who suggests patient be started on Ximena PIP daily, soft diet, and follow-up in clinic next week. Patient informed of results. Start pantoprazole and tylenol. Referral to [facility] for follow-up. Patient given instructions to return to the emergency room if worsening symptoms. Plan discussed with patient to discharge home and treat outpatient. He agrees with ER plan. Patient discharged home in stable condition. Follow up with PCP in 2-3 days. Critical care attestation.: If time is entered above; I have spent that time in minutes in the direct care of this critically ill patient, excluding procedure time. ED Disposition Clinical Impression: Abdominal pain Qualifiers: Abdominal location: generalized Qualified Code(s): R10.84 - Generalized abdominal pain Acute pancreatitis Qualifiers: Pancreatitis type: unspecified pancreatitis type Acute pancreatitis complicati on: no infection or necrosis Qualified Code(s): K85.90 - Acute pancreatitis without necrosis or infection, unspecified Disposition: TO HOME OR SELFCARE Is pt being admited?: No Does the pt Need Aspirin: No Condition: Stable Instructions: Pancreatitis (ED), Abdominal Pain (ED) Additional Instructions: Take Tylenol every 6-8 hours as needed for pain. Start taking an pantoprazole daily as instructed. Only eat soft foods. Return to the emergency room if worsening abdominal pain, nausea, vomiting, or diarrhea. Prescriptions: Acetaminophen [Acetaminophen 8 Hour] 650 mg PO TID PRN #30 tablet.er PRN Reason: Pain , Severe (7-10) Omeprazole 40 mg PO DAILY #30 capsule. Referrals: [facility] [Provider Group] - 3-5 Days [facility] [Outside] - 3-5 Days [facility] [Outside] - 3-5 Days Forms: Work/School Release Form(ED) Time of Disposition: 13:33
[2018-07-06 09:00] LABS: Bilirubin,Urine NEG (Negative); Blood,Urine MOD (Negative); Color,Urine Straw (Yellow); Protein,Urine <15 mg/dL mg/dL (Negative); Urobilinogen,Urine < 2.0 mg/dL (<2.0); WBC,Urine < 1.0 /HPF (0.0-6.0)
--- NOTE | 2018-07-06 11:22 | Cat Scan Report ---
CT ABDOMEN PELVIS WITH CONTRAST: HISTORY: Right upper quadrant tenderness. COMPARISON: 06/25/14. TECHNIQUE: Helical CT in 1.25mm intervals following IV contrast. Sagittal and coronal reconstructions. FINDINGS: Lung bases: Normal. Liver: There are 2 small hypodensities in the right hepatic lobe which demonstrate filling on the delayed images consistent with cavernous hemangiomas. The remainder of the liver is unremarkable. Biliary system: Normal. Pancreas: The pancreatic parenchyma is unremarkable. There is minimal howard edema near the base of the mesentery/pancreas/transverse duodenum. This could represent a very early acute pancreatitis or possibly duodenal inflammation. Spleen: Normal. Kidneys/ureters/bladder: Normal. Adrenal glands: Normal. Aorta: Normal. Intestines: Normal. Appendix: Normal. Pelvic viscera: Normal. Ascites: None. Adenopathy: None. Musculoskeletal: Intact. Mild degenerative changes are noted in the lumbar spine. IMPRESSION: Minimal nonspecific edema in the mesentery as described. Early acute pancreatitis? Duodenitis? Cavernous hemangiomas of the liver.
[2018-07-06] MEDS ORDERED: DILAUDID IV ONE (11:27)
[2018-07-06] MEDS ORDERED: TORADOL IV ONE (11:53)
[2018-07-06 14:05] VITALS: BP 148/90
== END 2018-07-06 14:03 | disposition home or self-care (01) ==
LOC: ED 03:06
DX: K85.90 Acute pancreatitis without necrosis or infection, unspecified (principal); I10 Essential (primary) hypertension; E11.9 Type 2 diabetes mellitus without complications; F31.9 Bipolar disorder, unspecified; F17.200 Nicotine dependence, unspecified, uncomplicated
CPT/HCPCS: 36415; 74177; 80053; 81001; 83690; 85025; 96374; 99284; J1885; Q9967; J1170

== ENCOUNTER 2020-12-03 15:51 | Emergency (ER) | payer SELFPAY ==
--- NOTE | 2020-12-03 16:45 | Emergency Department Report ---
ED General Adult HPI - General Stated complaint: MAJOR MANIC DEPRESSION Time Seen by Provider: 12/03/20 16:13 Source: patient Mode of arrival: Ambulatory Limitations: No Limitations - History of Present Illness Initial comments: Patient presents to the emergency department with a chief complaint of passing out. Patient was brought to the emergency department via EMS after being found on the side of the road. Patient states he gets really worked up at times and he passes out. He states he was at the hospital a week and a half ago at [facility] for the same thing. Patient states that he has had multiple episodes of what he calls fainting in the last 6 months. States she has been doing this for years. He denies chest pain, shortness breath, or headache. He does endorse having a history of major depressive disorder but denies any suicidal homicidal ideations. -: Sudden Severity scale (0 -10): 0 Consistency: now resolved Improves with: none Worsens with: none Associated Symptoms: denies other symptoms Treatments Prior to Arrival: none - Related Data Previous Rx's Medication Instructions Recorded Last Taken Type Azithromycin [Zithromax Z-TERRI] 250 mg PO DAILY #6 tablet 08/04/13 Unknown Rx Benzonatate [Tessalon Perles] 100 mg PO Q8HR PRN #30 capsule 08/04/13 Unknown Rx Ibuprofen [Motrin] 800 mg PO Q8H PRN #20 tablet 08/04/13 Unknown Rx Gabapentin [Neurontin] 300 mg PO Q8H #90 capsule 04/21/14 Unknown Rx Ibuprofen [Motrin] 800 mg PO BID #20 tablet 04/21/14 Unknown Rx Cyclobenzaprine [Flexeril 10mg] 10 mg PO TID PRN #20 tablet 06/25/14 Unknown Rx Docusate Sodium [Colace CAP] 100 mg PO BID PRN #30 capsule 06/25/14 Unknown Rx HYDROcodone/APAP 5-325 [[place] 1 each PO Q6HR PRN #14 tablet 06/25/14 Unknown Rx 5/325] Ibuprofen [Motrin] 600 mg PO Q8H PRN #15 tablet 08/29/16 Unknown Rx lisinopriL [Zestril TAB] 5 mg PO QDAY #15 tablet 08/29/16 Unknown Rx Ondansetron [Zofran Odt] 4 mg PO Q8HR PRN #14 tab.rapdis 11/14/16 Unknown Rx Valacyclovir HCl [Valtrex] 1,000 mg PO TID 7 Days #21 tablet 01/18/17 Unknown Rx hydrOXYzine HCL [Atarax] 25 mg PO Q6HR PRN 5 Days #20 tablet 01/18/17 Unknown Rx Acetaminophen [Acetaminophen 8 650 mg PO TID PRN #30 tablet.er 07/06/18 Unknown Rx Hour] Omeprazole 40 mg PO DAILY #30 capsule. 07/06/18 Unknown Rx Allergies Allergy/AdvReac Type Severity Reaction Status Date / Time Pork/Porcine Containing Allergy Unknown Verified 12/03/20 16:08 Products ED Review of Systems ROS: Stated complaint: MAJOR MANIC DEPRESSION Other details as noted in HPI Comment: All other systems reviewed and negative Constitutional: denies: chills, fever Eyes: denies: eye pain, eye discharge, vision change ENT: denies: ear pain, throat pain Respiratory: denies: cough, shortness of breath, wheezing Cardiovascular: denies: chest pain, palpitations Endocrine: no symptoms reported Gastrointestinal: denies: abdominal pain, nausea, diarrhea Genitourinary: denies: urgency, dysuria Musculoskeletal: denies: back pain, joint swelling, arthralgia Skin: denies: rash, lesions Neurological: denies: headache, weakness, paresthesias Psychiatric: denies: anxiety, depression Hematological/Lymphatic: denies: easy bleeding, easy bruising ED Past Medical Hx - Past Medical History Previous Medical History?: Yes Hx Hypertension: Yes Hx Diabetes: Yes Hx Psychiatric Treatment: Yes (BIPOLAR, depression) Additional medical history: Peripheral neuropathy,RECOVERING ALCOHOLIC and ADDICT - Surgical History Hx Appendectomy: Yes (??) - Social History Smoking Status: Current Every Day Smoker Substance Use Type: Marijuana - Medications Home Medications: Home Medications Medication Instructions Recorded Confirmed Last Taken Type Azithromycin [Zithromax Z-TERRI] 250 mg PO DAILY #6 tablet 08/04/13 Unknown Rx Benzonatate [Tessalon Perles] 100 mg PO Q8HR PRN #30 capsule 08/04/13 Unknown Rx Ibuprofen [Motrin] 800 mg PO Q8H PRN #20 tablet 08/04/13 Unknown Rx Gabapentin [Neurontin] 300 mg PO Q8H #90 capsule 04/21/14 Unknown Rx Ibuprofen [Motrin] 800 mg PO BID #20 tablet 04/21/14 Unknown Rx Cyclobenzaprine [Flexeril 10mg] 10 mg PO TID PRN #20 tablet 06/25/14 Unknown Rx Docusate Sodium [Colace CAP] 100 mg PO BID PRN #30 capsule 06/25/14 Unknown Rx HYDROcodone/APAP 5-325 [[place] 1 each PO Q6HR PRN #14 tablet 06/25/14 Unknown Rx 5/325] Ibuprofen [Motrin] 600 mg PO Q8H PRN #15 tablet 08/29/16 Unknown Rx lisinopriL [Zestril TAB] 5 mg PO QDAY #15 tablet 08/29/16 Unknown Rx Ondansetron [Zofran Odt] 4 mg PO Q8HR PRN #14 tab.rapdis 11/14/16 Unknown Rx Valacyclovir HCl [Valtrex] 1,000 mg PO TID 7 Days #21 tablet 01/18/17 Unknown Rx hydrOXYzine HCL [Atarax] 25 mg PO Q6HR PRN 5 Days #20 tablet 01/18/17 Unknown Rx Acetaminophen [Acetaminophen 8 650 mg PO TID PRN #30 tablet.er 07/06/18 Unknown Rx Hour] Omeprazole 40 mg PO DAILY #30 capsule. 07/06/18 Unknown Rx ED Physical Exam - General Limitations: No Limitations General appearance: alert, in no apparent distress - Head Head exam: Present: atraumatic, normocephalic - Eye Eye exam: Present: normal appearance, PERRL, EOMI - ENT ENT exam: Present: mucous membranes moist - Neck Neck exam: Present: normal inspection - Respiratory Respiratory exam: Present: normal lung sounds bilaterally. Absent: respiratory distress - Cardiovascular Cardiovascular Exam: Present: normal rhythm, tachycardia. Absent: systolic murmur, diastolic murmur, rubs, gallop - GI/Abdominal GI/Abdominal exam: Present: soft, normal bowel sounds. Absent: distended, tenderness - Rectal Rectal exam: Present: deferred - Extremities Exam Extremities exam: Present: normal inspection - Back Exam Back exam: Present: normal inspection - Neurological Exam Neurological exam: Present: alert, oriented X3, CN II-XII intact. Absent: motor sensory deficit - Psychiatric Psychiatric exam: Present: normal affect, normal mood - Skin Skin exam: Present: warm, dry, intact, normal color. Absent: rash ED Course Vital Signs 10/12/03/20 12/03/20 16:04 16:16 16:30 Temperature Pulse Rate 103 H Respiratory 18 Rate Blood Pressure 173/103 197/114 Blood Pressure [Right] O2 Sat by Pulse 98 97 97 Oximetry 12/03/20 12/03/20 12/03/20 16:46 17:00 17:16 Temperature Pulse Rate 100 H 97 H 97 H Respiratory 15 16 18 Rate Blood Pressure 197/114 197/114 197/114 Blood Pressure [Right] O2 Sat by Pulse 97 97 96 Oximetry 12/03/20 12/03/20 12/03/20 17:30 17:46 18:01 Temperature Pulse Rate 97 H 94 H 92 H Respiratory 10 L 10 L 13 Rate Blood Pressure 172/107 172/107 Blood Pressure [Right] O2 Sat by Pulse 97 97 98 Oximetry 12/03/20 12/03/20 12/03/20 18:15 18:31 18:57 Temperature Pulse Rate 90 90 96 H Respiratory 18 18 24 Rate Blood Pressure 172/107 203/121 Blood Pressure [Right] O2 Sat by Pulse 97 97 93 Oximetry 12/03/20 12/03/20 12/03/20 19:01 19:14 20:01 Temperature 98.6 F Pulse Rate 89 93 H 118 H Respiratory 21 19 17 Rate Blood Pressure 173/94 Blood Pressure 169/101 [Right] O2 Sat by Pulse 98 99 96 Oximetry 12/03/20 20:31 Temperature Pulse Rate 93 H Respiratory 15 Rate Blood Pressure 178/122 Blood Pressure [Right] O2 Sat by Pulse 97 Oximetry ED Medical Decision Making - Lab Data Result diagrams: 12/03/20 16:43 12/03/20 16:43 Lab Results 12/03/20 12/03/20 12/03/20 Range/Units 16:43 16:43 16:43 WBC 5.6 (4.5-11.0) K/mm3 RBC 5.56 H (3.65-5.03) M/mm3 Hgb 14.6 (11.8-15.2) gm/dl Hct 43.5 (35.5-45.6) % MCV 78 L (84-94) fl MCH 26 L (28-32) pg MCHC 34 (32-34) % RDW 14.9 (13.2-15.2) % Plt Count 261 (140-440) K/mm3 Lymph % (Auto) 35.5 H (13.4-35.0) % [place] % (Auto) 9.6 H (0.0-7.3) % Eos % (Auto) 0.7 (0.0-4.3) % Baso % (Auto) 1.3 (0.0-1.8) % Lymph # (Auto) 2.0 (1.2-5.4) K/mm3 [place] # (Auto) 0.5 (0.0-0.8) K/mm3 Eos # (Auto) 0.0 (0.0-0.4) K/mm3 Baso # (Auto) 0.1 (0.0-0.1) K/mm3 Seg Neutrophils % 52.9 (40.0-70.0) % Seg Neutrophils # 2.9 (1.8-7.7) K/mm3 PT 13.0 (12.2-14.9) Sec. INR 0.88 (0.87-1.13) APTT 26.9 (24.2-36.6) Sec. Sodium 139 (137-145) mmol/L Potassium 4.1 (3.6-5.0) mmol/L Chloride 100.6 (98-107) mmol/L Carbon Dioxide 24 (22-30) mmol/L Anion Gap 19 mmol/L BUN 10 (9-20) mg/dL Creatinine 0.8 (0.8-1.3) mg/dL Estimated GFR > 60 ml/min BUN/Creatinine Ratio 13 % Glucose 209 H (75-100) mg/dL Calcium 9.1 (8.4-10.2) mg/dL Total Bilirubin 0.20 (0.1-1.2) mg/dL AST 15 (5-40) units/L ALT 16 (7-56) units/L Alkaline Phosphatase 127 (35-129) units/L Total Creatine Kinase 99 (55-170) units/L Troponin T < 0.010 (0.00-0.029) ng/mL NT-Pro-B Natriuret Pep 81.16 (0-900) pg/mL Total Protein 6.6 (6.3-8.2) g/dL Albumin 4.0 (3.9-5) g/dL Albumin/Globulin Ratio 1.5 % - EKG Data -: EKG Interpreted by Oh EKG shows normal: sinus rhythm Rate: normal - Radiology Data Radiology results: report reviewed - Medical Decision Making Discussed results with patient Patient offered admission and he politely declined Critical care attestation.: If time is entered above; I have spent that time in minutes in the direct care of this critically ill patient, excluding procedure time. ED Disposition Clinical Impression: Vasovagal episode Disposition: HOME / SELF CARE / HOMELESS Is pt being admited?: No Does the pt Need Aspirin: No Condition: Stable Instructions: Syncope (ED), Syncope Additional Instructions: Return if worse Referrals: PRIMARY CAREMD [Primary Care Provider] - 3-5 Days ASHLEY JENNINGS MD [Staff Physician] - 3-5 Days Time of Disposition: 21:23
[2020-12-03 16:55] LABS: Basophils # (Auto) 0.1 K/mm3 (0.0-0.1); Basophils % (Auto) 1.3 % (0.0-1.8); Eosinophils % (Auto) 0.7 % (0.0-4.3); Hematocrit 43.5 % (35.5-45.6); Hemoglobin 14.6 gm/dl (11.8-15.2); Lymphocytes % (Auto) 35.5 % (13.4-35.0); Mean Corpuscular HGB Conc 34 % (32-34); Mean Corpuscular Volume 78 fl (84-94); Monocytes # (Auto) 0.5 K/mm3 (0.0-0.8); Monocytes % (Auto) 9.6 % (0.0-7.3); Platelet Count 261 K/mm3 (140-440); Red Blood Count 5.56 M/mm3 (3.65-5.03); Red Cell Distribution Width 14.9 % (13.2-15.2)
--- NOTE | 2020-12-03 17:04 | XRay Report ---
CHEST 1 VIEW 12/03/2020 3:57 PM INDICATION / CLINICAL INFORMATION: syncope. COMPARISON: 08/04/13 FINDINGS: SUPPORT DEVICES: None. HEART / MEDIASTINUM: No significant abnormality. LUNGS / PLEURA: No significant pulmonary or pleural abnormality. No pneumothorax. ADDITIONAL FINDINGS: No significant additional findings. IMPRESSION: 1. No acute findings. No change. Signer Name: Trevin Ortez MD Signed: 12/03/2020 5:00 PM Workstation Name: [id number]
[2020-12-03 17:21] LABS: Alanine Aminotransferase 16 units/L (7-56); BUN/Creatinine Ratio 13; Blood Urea Nitrogen 10 mg/dL (9-20); Calcium 9.1 mg/dL (8.4-10.2); Hemolysis Index 4
[2020-12-03 18:33] LABS: INR 0.88 (0.87-1.13)
[2020-12-03 18:34] LABS: Partial Thromboplastin Time 26.9 Sec. (24.2-36.6)
--- NOTE | 2020-12-03 19:33 | Cat Scan Report ---
NONENHANCED CT SCAN OF THE HEAD: INDICATION / CLINICAL INFORMATION: 50 years Male; syncope. TECHNIQUE: Routine CT head without contrast. All CT scans at this location are performed using CT dos e reduction for ALARA by means of automated exposure control. COMPARISON: None. FINDINGS: BRAIN / INTRACRANIAL CONTENTS: No acute hemorrhage, mass effect, midline shift, hydrocephalus, or acu te, large territorial infarct. No chronic infarct or focal atrophy. Normal brain volume and ventricul ar/sulcal size for age. No significant white matter abnormality. CRANIOCERVICAL JUNCTION: No significant abnormality. ORBITS: No significant abnormality of visualized orbits. SINUSES / MASTOIDS: No significant abnormality of the visualized paranasal sinuses or mastoid air kirit ls. ADDITIONAL FINDINGS: None. IMPRESSION: No focal parenchymal lesion Signer Name: Tiarra Cardoso MD Signed: 12/03/2020 7:29 PM Workstation Name: [id number]
[2020-12-03 21:56] VITALS: BP 186/114
--- NOTE | 2020-12-04 09:18 | Electrocardiograph Report ---
[facility] Test Date: 2020-12-03 Test Time: 21:17:48 Pat Name: TIMBO PIZARRO Department: Room: Gender: M [employer] Operator: DESTINY : 1970 Requested By: LUCIE OSORIO Order Number: [id number] Reading MD: Mohit Hutchison Measurements Intervals [place] Rate: 98 P: 64 [place]: 160 QRS: 23 QRSD: 81 T: 62 QT: 362 QTc: 461 Interpretive Statements Sinus rhythm Probable left atrial enlargement ST elev, probable normal early repol pattern No previous ECG available for comparison Electronically Signed On 12-04-2020 9:18:30 EDT by Mohit Hutchison
== END 2020-12-03 22:05 | disposition home or self-care (01) ==
LOC: ED 15:51
DX: R55 Syncope and collapse (principal); F31.9 Bipolar disorder, unspecified; I10 Essential (primary) hypertension; E11.9 Type 2 diabetes mellitus without complications; F17.200 Nicotine dependence, unspecified, uncomplicated; Z91.018 Allergy to other foods; Z79.899 Other long term (current) drug therapy
CPT/HCPCS: 36415; 70450; 71045; 80053; 82550; 83880; 84484; 85025; 85610; 85730; 93005; 99284